=== PATIENT | female | born 1995 | race Caucasian/White ===

== ENCOUNTER → 2020-05-13 09:11 | Outpatient (CLI) | payer OTHER, SELFPAY ==
--- NOTE | ~2020-05-13 | US_ITS ---
EXAMINATION: US abdomen complete EXAM DATE: 05/13/2020 09:40 INDICATION: Epigastric abdominal pain with vomiting. TECHNIQUE: Multiple grayscale and Doppler images of the complete abdomen were obtained (by a technolo gist who performed the scan) and subsequently reviewed. Comparison is made to prior examination from 03/04/2014. FINDINGS: The abdominal aorta is normal in caliber. Visualized portion IVC is patent. The pancreatic head a nd body are normal in appearance. The pancreatic tail is not visualized. There is echogenic liver parenchyma with poor penetration, hepatic steatosis. There are no focal kyle er lesions identified. There is no evidence of intrahepatic biliary duct dilation. Portal venous f low was seen in the hepatopedal, normal direction and has normal Doppler waveform. Common bile duct measures 3 mm, which is normal. The gallbladder wall is normal in thickness, with ex pected amount of distention. No sonographic evidence of pericholecystic fluid. There is no cholelit hiases. Technologist performing exam reports patient did not demonstrate sonographic Griffith's sign. Please note that this sign is less reliable in patients who have received pain medication. Right kidney: There is normal contour and echogenicity. It measures 12.7 x 4.9 x 5.9 centimeters. There are no focal renal lesions identified. There is no hydronephrosis. Left kidney: There is normal contour and echogenicity. It measures 13.0 x 5.2 x 4.9 centimeters. T here are no focal renal lesions identified. There is no hydronephrosis. The spleen measures 11.8 centimeters and is morphologically normal. IMPRESSION: Hepatic steatosis. Reviewed, dictated and finalized at location B. 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
== END ==
PROVIDERS: PCP Family Medicine Adolescent Medicine; Visit Provider Family Medicine Adolescent Medicine
DX: R10.13 Epigastric pain (principal); R11.10 Vomiting, unspecified; K76.0 Fatty (change of) liver, not elsewhere classified
CPT/HCPCS: 76700